=== PATIENT | female | born 1980 | race Caucasian/White ===

== ENCOUNTER 2017-04-06 09:09 | Emergency (ER) | payer MEDICAID, OTHER ==
[~2017-04-06] VITALS: Ht 152.4 cm; Wt 59.0 kg
[2017-04-06] MEDS ORDERED: ACETAMINOPHEN 325MG TABLET PO ONE (10:00)
[2017-04-06 10:24] LABS: CLARITY URINE CLEAR (CLEAR); COLOR URINE YELLOW (YELLOW); GLUCOSE URINE NEGATIVE (NEGATIVE); KETONES URINE NEGATIVE (NEGATIVE); LEUKOCYTE ESTERASE URINE TRACE (NEGATIVE); NITRITE URINE NEGATIVE (NEGATIVE); OCCULT BLOOD URINE NEGATIVE (NEGATIVE); PROTEIN URINE NEGATIVE (NEGATIVE); SPECIFIC GRAVITY URINE 1.015 (1.005-1.030); UROBILINOGEN URINE 0.2 E.U./dL (0.2-1.0)
[2017-04-06 10:57] LABS: BASOPHILS % 0.4 % (0.0-2.0); EOSINOPHILS % 0.4 % (0.0-5.0); HEMATOCRIT. 40.8 % (36.0-48.0); HEMOGLOBIN. 14.4 g/dL (12.0-16.0); LYMPHOCYTES % 23.9 % (20.0-50.0); MEAN CORPUSCULAR HEMOGLOBIN 30.3 pg (28.0-32.0); MEAN CORPUSCULAR VOLUME 86.3 fL (81.0-99.0); MEAN PLATELET VOLUME 9.6 fl (7.4-10.4); MONOCYTES % 5.6 % (2.0-8.0); NEUTROPHILS % 69.7 % (40.0-76.0); PLATELET 189 x1000/uL (130-400); RED BLOOD CELL COUNT 4.73 mill/uL (4.2-5.4); RED CELL DISTRIBUTION WIDTH 13.4 % (11.6-14.6)
[2017-04-06 11:04] LABS: PROTHROMBIN TIME 10.8 sec (9.4-11.6)
[2017-04-06 11:09] LABS: HCG SCREEN NEGATIVE
[2017-04-06 11:15] LABS: CARBON DIOXIDE 28 mEq/L (21-32); CHLORIDE 105 mEq/L (98-107)
[2017-04-06 11:52] VITALS: BP 111/70
[2017-04-06] MEDS ORDERED: NITROFURANTOIN 100MG M/M CAPSULE PO ONE (12:45)
== END 2017-04-06 14:11 | disposition home or self-care (01) ==
LOC: ER 09:14
DX: N39.0 Urinary tract infection, site not specified (principal)
CPT/HCPCS: 36415; 76830; 76856; 80053; 81001; 81025; 83690; 84703; 85025; 85610; 99285